=== PATIENT | male | born 1975 | race Caucasian/White ===

== ENCOUNTER 2020-08-22 09:24 | Emergency (ER) | payer OTHER ==
[~2020-08-22] VITALS: Ht 170.2 cm; Wt 70.3 kg
[2020-08-22 09:39] VITALS: BP 139/78
--- NOTE | 2020-08-22 09:39 | NUR ---
PT OUTSIDE IN COVID TENT.
--- NOTE | 2020-08-22 09:46 | NUR ---
45/M BIB FAMILY C/O COUGH, FATIQUE, CHEST & BACK PAIN 5/10 X 3 DAYS. COVID TESTED + 08/17/19.
[2020-08-22 11:13] LABS: BASOPHILS % (AUTO) 0.3 % (0.0-2.0); EOSINOPHILS # (AUTO) 0.1 K/uL (0-0.4); EOSINOPHILS % (AUTO) 0.8 % (0.0-4.0); HEMATOCRIT 44.7 % (36-52); HEMOGLOBIN 15.2 g/dL (12.0-18.0); LYMPHOCYTES # (AUTO) 1.2 K/uL (2.0-11.5); LYMPHOCYTES % (AUTO) 9.6 % (20.5-51.1); MEAN CORPUSCULAR HEMOGLOBIN 30 pg (27-31); MEAN CORPUSCULAR HGB CONC 34 g/dL (33-37); MEAN CORPUSCULAR VOLUME 87.6 fL (80-94); MONOCYTES # (AUTO) 1.3 K/uL (0.8-1.0); NEUTROPHILS # (AUTO) 9.5 K/uL (1.8-7.7); NEUTROPHILS % (AUTO) 78.3 % (42.2-75.2); PLATELET COUNT (AUTO) 387 K/uL (140-450); RED CELL DISTRIBUTION WIDTH 13.5 % (11.6-13.7); WHITE BLOOD COUNT (AUTO) 12.1 K/uL (4.8-10.8)
[2020-08-22 11:39] LABS: ANION GAP 10.9 (8-16); CARBON DIOXIDE 29.3 mmol/L (21-32); CREATININE 0.9 mg/dL (0.6-1.3); POTASSIUM 4.2 mmol/L (3.5-5.1); TOTAL BILIRUBIN 0.9 mg/dL (0.0-1.0)
[2020-08-22 12:32] VITALS: BP 139/78
== END 2020-08-22 12:37 | disposition home or self-care (01) ==
LOC: MED 09:24
DX: U07.1 COVID-19 (principal); J12.89 Other viral pneumonia
CPT/HCPCS: 36415; 71045; 80053; 85025; 99284